=== PATIENT | female | born 1975 | race Caucasian/White ===

== ENCOUNTER 2017-02-11 08:13 | Day surgery (SDC) | payer BC ==
[~2017-02-11 08:13] MED LIST: Lactated Ringers 1,000 ML IV SCH; Lidocaine 1%/Sod Bicarbonate in NS 8.4% 1 ML Syringe PRN; Sodium Chloride 0.9% 10 ML Syringe FLUSH PRN
--- NOTE | 2017-02-11 09:39 | PCM.PREANE ---
Preanesthetic Assessment - Anesthesia/Transfusion/Family Hx Anesthesia History: Prior Anesthesia Reaction Type of Anesthesia Reaction: Excessive Nausea/Vomiting Family History of Anesthesia Reaction: No Transfusion History: No Prior Transfusion(s) Intubation History: Unknown - Review of Systems General: No Symptoms Pulmonary: No Symptoms Cardiovascular: Palpitations Gastrointestinal: No Symptoms (history of gastric bypass/occasional GERD) Neurological: No Symptoms Other: Reports: Easy Bleeding, Easy Bruising, Thyroid Problems (history of hypothyroidism), Sinus Problem - Physical Assessment NPO Status Date: 02/10/17 NPO Status Time: 20:30 Pulse: 81 O2 Sat by Pulse Oximetry: 100 Respiratory Rate: 16 Blood Pressure: 142/78 Temperature: 36.6 C Vital Signs: Last Vital Signs Temp 36.6 C 02/11/17 08:20 Pulse 81 02/11/17 08:20 Resp 16 02/11/17 08:20 BP 142/78 H 02/11/17 08:20 Pulse Ox 100 02/11/17 08:20 Height: 1.65 m Weight: 102.512 kg ASA Class: 2 Mental Status: Alert & Oriented x3 Airway Class: Mallampati = 2 Dentition: Reports: Normal Dentition, Caries Thyro-Mental Finger Breadths: 3 Mouth Opening Finger Breadths: 3 ROM/Head Extension: Full Lungs: Clear to Auscultation, Normal Respiratory Effort Cardiovascular: Regular Rate, Regular Rhythm, No Murmurs - Lab Values: Lab values from the past reviewed and noted, and within acceptable ranges to proceed with scheduled colonoscopy. - Allergies Allergies/Adverse Reactions: Allergies Allergy/AdvReac Type Severity Reaction Status Date / Time No Known Allergies Allergy Verified 02/10/17 13:54 - Anesthesia Plan Pre-Op Medication Ordered: None - Acknowledgements Anesthesia Type Planned: MAC Pt an Appropriate Candidate for the Planned Anesthesia: Yes Alternatives and Risks of Anesthesia Discussed w Pt/Guardian: Yes Pt/Guardian Understands and Agrees with Anesthesia Plan: Yes PreAnesthesia Questionnaire HEENT History: Reports: Allergic Rhinitis Cardiovascular History: Reports: None Respiratory History: Reports: None Gastrointestinal History: Reports: None EX CHEF History: Reports: , Other (See Below) Other OB/BYN History: FRANCISCO, abnormal uterine bleeding, metrohagia Musculoskeletal History: Reports: None Neurological History: Reports: None Psychiatric History: Reports: None Endocrine/Metabolic History: Reports: Hypothyroidism, Vitamin D Deficiency Hematologic History: Reports: Other (See Below) Other Hematologic History: abnormal platelets Immunologic History: Reports: None Oncologic (Cancer) History: Reports: None Dermatologic History: Reports: None - Past Surgical History Head Surgeries/Procedures: Reports: None HEENT Surgical History: Reports: None Cardiovascular Surgical History: Reports: None Respiratory Surgical History: Reports: None GI Surgical History: Reports: Appendectomy, Bariatric Procedure Female Surgical History: Reports: Breast Implant, Section, Cervical Cryotherapy Male Surgical History: Reports: None Endocrine Surgical History: Reports: None Neurological Surgical History: Reports: None Musculoskeletal Surgical History: Reports: None Oncologic Surgical History: Reports: None Dermatological Surgical History: Reports: Plastic Surgical Reconstruction/Repair , Other (See Below) - SUBSTANCE USE Smoking Status *Q: Never Smoker Recreational Drug Use History: No - HOME MEDS Home Medications: Home Meds Calcium Carbonate/Vitamin D3 [Calcium 500 + Vit D 400] 1 tab PO DAILY 02/10/17 [ History] Cholecalciferol (Vitamin D3) [Vitamin D3] 5,000 unit PO DAILY 02/10/17 [History] Cyanocobalamin (Vitamin B-12) [Vitamin B-12] 1,000 mcg SQ Q30D 02/10/17 [History ] Lactobacillus Acidophilus [Probiotic] 1 cap PO DAILY 02/10/17 [History] Levothyroxine [Levothyroxine] 25 mcg PO DAILY 02/10/17 [History] Multivitamin [Zoo Chews] 1 tab PO DAILY 02/10/17 [History] Norethindrone-Ethinyl Estrad [Nortrel 1-35 28 Tablet] 1 tab PO DAILY 02/10/17 [ History] - CURRENT (IN HOUSE) MEDS Current Meds: Current Medications Lactated Ringer's (Ringers, Lactated) 1,000 mls @ 125 mls/hr IV ASDIRECTED MERNA Stop: 02/11/17 23:00 Last Admin: 02/11/17 08:55 Dose: 125 mls/hr Lidocaine/Sodium Bicarbonate (Buffered Lidocaine 1% In Ns 8.4%) 0.25 ml .XX ONETIME PRN PRN Reason: Prior to IV Start Stop: 02/11/17 18:00 Last Admin: 02/11/17 08:55 Dose: 0.25 ml Sodium Chloride (Saline Flush) 10 ml FLUSH ASDIRECTED PRN PRN Reason: Keep Vein Open Stop: 02/11/17 18:00
[2017-02-11] MEDS ORDERED: Propofol 200 MG/20 ML SDV ONE ×4 (10:45→11:14)
[2017-02-11] MEDS ORDERED: fentaNYL 100 MCG/2 ML SDV ONE (10:46)
[2017-02-11] MEDS ORDERED: Lidocaine 1% 4 ML ONE (10:46)
[2017-02-11] MEDS ORDERED: Ondansetron 4 MG/2 ML SDV ONE (11:00)
--- NOTE | 2017-02-11 11:00 | PCM.OPNOTE ---
- General Post-Op/Procedure Note Date of Surgery/Procedure: 02/11/17 Operative Procedure(s): Colonoscopy with ileal and random rectal biopsies Findings: Normal colorectal evaluation grossly. Normal terminal ileum endoscopically. Pre Op Diagnosis: Chronic diarrhea with associated change in bowel habits Post-Op Diagnosis: Same Anesthesia Technique: MAC, Moderate Sedation Primary Surgeon: Beltran Cordero Pathology: Ileal and rectal random biopsies EBL in mLs: 0 Complications: None Condition: Good Free Text/Narrative:: After adequate IV sedation and analgesia was obtained the patient was placed on her left side. Perianal inspection and digital rectal examination were performed next and were unremarkable. A lubricated colonoscope was advanced into the rectum then advanced under direct vision to the cecum without difficulty. The bowel preparation was excellent. Because of her history of diarrhea I intubated the terminal ileum with the scope. The mucosa was grossly normal. I took random biopsies for histologic review of the ileal mucosa. The scope was then withdrawn to the cecum. The cecum ascending colon transverse descending and sigmoid colons were endoscopically normal with no mass lesions or inflammatory changes seen. The rectum was also unremarkable. I took random rectal biopsies for histologic review. Photographs were taken for the patient and for the medical record. There were no complications.
--- NOTE | 2017-02-11 11:07 | PCM48HPAN ---
Post Anesthesia Note - EVALUATION WITHIN 48HRS OF ANESTHETIC Vital Signs in Normal Range: Yes Patient Participated in Evaluation: Yes Respiratory Function Stable: Yes Airway Patent: Yes Cardiovascular Function Stable: Yes Hydration Status Stable: Yes Pain Control Satisfactory: Yes Nausea and Vomiting Control Satisfactory: Yes Mental Status Recovered: Yes
== END 2017-02-11 11:45 | disposition home or self-care (01) ==
LOC: JD.SDS 08:13
PROVIDERS: ATTEND Surgery
DX: Z12.11 Encounter for screening for malignant neoplasm of colon (principal); K52.9 Noninfective gastroenteritis and colitis, unspecified; R19.4 Change in bowel habit; E03.9 Hypothyroidism, unspecified; E55.0 Rickets, active; Z87.410 Personal history of cervical dysplasia; Z80.0 Family history of malignant neoplasm of digestive organs; Z80.1 Family history of malignant neoplasm of trachea, bronchus and lung; Z83.3 Family history of diabetes mellitus; Z80.8 Family history of malignant neoplasm of other organs or systems; Z79.3 Long term (current) use of hormonal contraceptives; Z79.899 Other long term (current) drug therapy; Z98.84 Bariatric surgery status; Z98.890 Other specified postprocedural states
CPT/HCPCS: 45380; 81025; J2405; J3010; J7120; 00810; J2704